=== PATIENT | female | born 1960 | race Caucasian/White ===

== ENCOUNTER 2017-03-12 01:04 | Emergency (ER) | payer OTHER ==
[~2017-03-12] VITALS: Ht 162.6 cm; Wt 66.5 kg
[2017-03-12 01:25] VITALS: Ht 162.6 cm; Wt 66.5 kg
[2017-03-12] MEDS ORDERED: SULF1TAB31 PO (03:15)
[2017-03-12] MEDS ORDERED: CEPH-443 PO (03:15)
[2017-03-12] MEDS ORDERED: DIPHTH/TET/ACEL PERTUSS (ADULT) 0.5 ML VIAL IM* ONE (03:30)
[2017-03-12 03:38] VITALS: BP 121/70; PULSE 96; RESP 14; TEMP 98.6
--- NOTE | 2017-03-12 05:17 | ERD ---
ER Documentation Chief Complaint Chief Complaint right lower leg lac x 1 week, c/o fever/body aches HPI 56-year-old female with a history of hypertension diabetes mellitus type 2 presents with the chief complaints of laceration to the right lower extremity 1 week ago. Denies fever, chills, pain. Patient was brought in by daughter who is worried because she has diabetes. Has not taken any medications for this. Mother does not remember what she cut it on. Patient has no other complaints and describes no other associated manifestations. Nursing notes have been reviewed and are consistent with history given. ROS All systems reviewed and are negative except as per history of present illness. Medications Home Meds Active Scripts Cephalexin* (Keflex*) 500 Mg Capsule, 500 MG PO QID for 5 Days, CAP Prov:GISELL BUSH PA-C 03/12/17 Sulfamethoxazole/Trimethoprim* (Bactrim Ds* Tablet) 1 Each Tablet, 1 TAB PO BID , #14 TAB Prov:GISELL BUSH PA-C 03/12/17 Allergies Allergies: Coded Allergies: No Known Drug Allergies (Verified Allergy, Unknown, 03/12/17) PMhx/Soc History of Surgery: Yes () Hx Alcohol Use: No Hx Substance Use: No Hx Tobacco Use: No Smoking Status: Never smoker Physical Exam Vitals Vital Signs Date Time Temp Pulse Resp B/P Pulse Ox O2 Delivery O2 Flow Rate FiO2 03/12/17 03:38 98.6 96 14 121/70 100 Room Air 03/12/17 01:25 97.2 98 20 133/63 97 Physical Exam Const: Well-appearing 56-year-old female no acute distress. Head: Atraumatic Eyes: Normal Conjunctiva ENT: Normal External Ears, Nose and Mouth. Neck: Full range of motion..~ No meningismus. Resp: Clear to auscultation bilaterally Cardio: Regular rate and rhythm, no murmurs Abd: Soft, non tender, non distended. Normal bowel sounds Skin: No petechiae or rashes Back: No midline or flank tenderness Ext: 7 cm vertical laceration on the right lower extremity below the knee. Mild erythema around the laceration otherwise well-appearing healing. No induration. No discharge noted. No tenderness palpation. No evidence of streaking or other skin changes. No palpable cord. No swelling. Neur: Awake and alert Psych: Normal Mood and Affect Results 24 hrs Current Medications Medications (Trade) Dose Ordered Sig/Hellen Route PRN Reason Start Time Stop Time Status Last Admin Dose Admin Diphtheria/ Tetanus/Acell Pertussis (Adacel) 0.5 ml ONCE ONCE IM* 03/12/17 03:30 03/12/17 03:31 DC 03/12/17 03:18 Procedures/MDM 56-year-old female presenting with a history of diabetes mellitus and hypertension presents 1 week status post laceration to right lower extremity. Tetanus is unknown. Tetanus vaccination was given. Antibiotics will be given. I have no suspicion for systemic infection including bacteremia, spreading cellulitis, lymphangitis or other serious bacterial infection. Most likely diagnosis is superficial localized cellulitis of the right lower extremity. Patient will be treated with Bactrim and Keflex. Outpatient management. I have spoke with the patient regarding their condition and future management. They have verbally responded that they understand their status and treatment plan. The patients vitals are stable, and their current condition is appropriate for discharge. The patient will be given discharge instructions with return precautions. Departure Diagnosis: Primary Impression: Laceration Additional Impression: Cellulitis Site of cellulitis: extremity Site of cellulitis of extremity: lower extremity Laterality: right Qualified Code: L03.115 - Cellulitis of right lower extremity Condition: Stable Patient Instructions: Cellulitis Additional Instructions: Follow up with your PCP within the next 1-3 days for a more thorough evaluation and a possible referral to a specialist. Return the the emergency department immediately if symptoms worsen or change. If you have any questions regarding medications, ask your pharmacist or us before you leave. If any adverse reactions occur while taking your medications, discontinue the treatment and return to the emergency department immediately. Take your medications as directed, and complete the entire course of treatment. GISELL BUSH PA-C Mar 12, 2017 05:17
[2017-03-12] MEDS ORDERED: NAPR-260 PO (20:50)
== END 2017-03-12 03:42 | disposition home or self-care (01) ==
LOC: FTE 01:04
DX: S81.811A Laceration without foreign body, right lower leg, initial encounter (principal); L03.115 Cellulitis of right lower limb; I10 Essential (primary) hypertension; E11.9 Type 2 diabetes mellitus without complications; X58.XXXA Exposure to other specified factors, initial encounter; Y92.9 Unspecified place or not applicable; Z23 Encounter for immunization
CPT/HCPCS: 90471; 90715; Z7502

== ENCOUNTER 2017-03-12 19:24 | Emergency (ER) | payer OTHER ==
[~2017-03-12] VITALS: Ht 157.5 cm; Wt 70.5 kg
[~2017-03-12 19:24] MED LIST: CEPH-443 PO; SULF1TAB31 PO
[2017-03-12 19:34] VITALS: Ht 157.5 cm; Wt 70.5 kg
[2017-03-12] MEDS ORDERED: INSULIN LISPRO 100 UNIT/ML VIAL SC STA (20:47)
[2017-03-12] MEDS ORDERED: KETOROLAC 30 MG INJ IM STA (20:47)
[2017-03-12] MEDS ORDERED: NAPR-260 PO (20:50)
--- NOTE | 2017-03-12 20:54 | ERD ---
ER Documentation Chief Complaint Chief Complaint BIBA RA102,C/O RT ARM PAIN AND RT LEG NUMBNESS R/T FALL ROS All systems reviewed and are negative except as per history of present illness. Medications Home Meds Active Scripts Naproxen* (Naprosyn*) 500 Mg Tablet, 500 MG PO BID Y for PAIN AND/OR INFLAMMATION, #30 TAB Prov:TREVOR GIBBS MD 03/12/17 Cephalexin* (Keflex*) 500 Mg Capsule, 500 MG PO QID for 5 Days, CAP Prov:GISELL BUSH PA-C 03/12/17 Sulfamethoxazole/Trimethoprim* (Bactrim Ds* Tablet) 1 Each Tablet, 1 TAB PO BID , #14 TAB Prov:GISELL BUSH PA-C 03/12/17 Allergies Allergies: Coded Allergies: No Known Drug Allergies (Verified Allergy, Unknown, 03/12/17) PMhx/Soc Depression, anxiety, diabetes mellitus, hypertension, hypercholesterolemia History of Surgery: Yes () Hx Alcohol Use: No Hx Substance Use: No Hx Tobacco Use: No FmHx Family History: No diabetes Physical Exam Vitals Vital Signs Date Time Temp Pulse Resp B/P Pulse Ox O2 Delivery O2 Flow Rate FiO2 03/12/17 19:34 98.2 102 18 176/97 98 Physical Exam GENERAL: Well-developed, well-nourished, well-hydrated, depressed affect HEENT: Moist mucous membranes, pink conjunctiva, no cervical spine tenderness or step-off deformities, no goiter, no jaundice or icterus, extraocular movements intact without pain. No submandibular induration, and no pharyngeal erythema NEURO: Alert and oriented 3, cranial nerves II through XII intact bilaterally, pupils equal round reactive to light, no focal deficits or facial asymmetry, sensation intact distally Strength 5/5 in upper and lower extremities bilaterally CARDIAC: Regular rate and rhythm, no murmurs rubs or gallops LUNGS: Clear bilaterally no wheezing crackles or stridor ABDOMEN: Soft nontender, no guarding, no rigidity, no rebound, no psoas sign no obturator sign. Normoactive bowel sounds SKIN: Warm and dry to touch, superficial healing laceration measuring about 4 cm to the right anterior lower leg without purulent discharge or drainage, no target lesions, and without ulcers EXTREMITIES: No clubbing cyanosis or edema, calves are bilaterally symmetrical, no Homans sign, no popliteal cord sign. Distal pulses equal and bilateral PSYCH: Depressed affect Results 24 hrs Laboratory Tests Test 03/12/17 20:19 Bedside Glucose 387mg/dL Current Medications Medications (Trade) Dose Ordered Sig/Hellen Route PRN Reason Start Time Stop Time Status Last Admin Dose Admin Ketorolac Tromethamine (Toradol) 30 mg ONCE STAT IM 03/12/17 20:47 03/12/17 20:49 DC 03/12/17 21:24 Insulin Human Lispro (Humalog) 6 unit ONCE STAT SC 03/12/17 20:47 03/12/17 20:49 DC 03/12/17 21:12 Procedures/MDM patient was placed on health promotion coordinator rhythm strip revealed a sinus rhythm at about 80 bpm with upright P and T waves. Patient was afebrile I administered Toradol 30 mg intramuscular injection 1. Chest X-ray 1V Interpreted by me: Soft Tissue: No acute abnormalities Bones: No acute abnormalities Mediastinum/Cardiac Silhouette/Lungs: No acute abnormalities CT scan of the brain was performed that was negative for bleed mass or shift. Aside from the right lower leg laceration which is old patient has no signs of injury, she has no bony deformity or tenderness, no large abrasions no obvious significant soft tissue contusions or hematomas. Patient did have complains of right sided body ache after falling today and will be discharged with prescription NSAIDs to help with symptoms. Imaging today was unremarkable and patient can follow-up with her PMD. Patient's blood pressure improved. Differential diagnoses considered, included but not limited to acute coronary syndrome, pulmonary embolism, aortic dissection, abdominal aortic aneurysm, sepsis, stroke, meningitis, encephalitis, pneumonia, appendicitis, cholecystitis , bowel obstruction, pyelonephritis, nephrolithiasis, cystitis, as well as metabolic, hematologic, and electrolyte abnormalities. As well as abscess, cellulitis, fractures, and dislocations. Patient feels much better at this time, and vital signs are normal, symptoms have improved. I did give strict instructions to return to the ED if symptoms continue or worsen, patient will otherwise follow-up with primary care physician. Patient understood instructions and agreed to plan. Disclaimer: Inadvertent spelling and grammatical errors are likely due to EHR/ dictation software use and do not reflect on the overall quality of patient care. Also, please note that the electronic time recorded on this note does not necessarily reflect the actual time of the patient encounter. Departure Diagnosis: Primary Impression: Fall with no significant injury Encounter type: initial encounter Qualified Code: W19.XXXA - Fall with no significant injury, initial encounter Additional Impressions: Depression Depression Type: major depressive disorder Major depression recurrence: single episode Active/Remission status: currently active Major depression episode severity: mild Qualified Code: F32.0 - Mild single current episode of major depressive disorder Scalp contusion Encounter type: initial encounter Qualified Code: S00.03XA - Contusion of scalp, initial encounter Hypertension Hypertension type: essential hypertension Qualified Code: I10 - Essential hypertension Condition: Good Patient Instructions: Scalp Contusion With Wake Up, Fall Prevention TREVOR GIBBS MD Mar 12, 2017 20:54
--- NOTE | 2017-03-12 21:35 | RADRPT ---
PROCEDURE: XR Chest. CLINICAL INDICATION: Pain status post trauma TECHNIQUE: AP Portable chest. COMPARISON: None available FINDINGS: The soft tissues and bones are remarkable for mild thoracic spondylosis. EKG leads is superimposed o jenniffer the chest wall.. No focal infiltrates, masses, or effusions are noted. The mediastinum and hea rt are remarkable for mild vascular calcifications of the thoracic aorta and normal size heart.. No pneumothorax is present. IMPRESSION: 1. No evidence for acute cardiopulmonary disease 2. Mild atherosclerotic vascular disease RPTAT: HDC .Melissa Duncan MD, MD Date Time Electronically viewed and signed by .Melissa Duncan MD, MD on 03/12/2017 21:35 .C/
--- NOTE | 2017-03-12 21:49 | RADRPT ---
PROCEDURE: CT Brain without contrast. CLINICAL INDICATION: Injury. Concern for bleed. TECHNIQUE: A CT of the brain was performed on multidetector high-resolution CT scanner utilizing a xial sections from the skull base through the vertex without contrast. The scan was reviewed in sof t tissue brain and high frequency resolution bone algorithm windows. Images were reviewed on a high -resolution PACS workstation. One or more the following does reduction techniques were utilized: Aut omated exposure control, adjustment of the mA/ or kV according to patient's size, or use of iterativ e reconstruction technique. The exam CTDI = 40.06 mGy and the DLP = 750.4 mGy-cm. COMPARISON: None available. FINDINGS: The ventricles and sulci are age-appropriate. There is no intracranial hemorrhage, mass effect or mi dline shift. No abnormal intra-axial or extra-axial fluid collections are seen. The delgado/white susie er differentiation is preserved. There are mild scattered foci of hypoattenuation in the white matter, which are nonspecific in etiol ogy but likely reflect chronic small vessel ischemic changes. There are mild intracranial vascular calcifications consistent with atherosclerosis. The visualized paranasal sinuses demonstrate mild sc attered mucosal thickening mainly in ethmoid air cells and sphenoid sinuses with a small fluid level s in bilateral sphenoid sinuses. The mastoid air cells are essentially clear. IMPRESSION: 1. No acute intracranial hemorrhage, transcortical infarction or mass effect. 2. Mild intracranial atherosclerosis and chronic small vessel ischemic changes. 3. Mild scattered paranasal sinus disease with small fluid levels in bilateral sphenoid sinuses. RPTAT: HFN .Piter Wilcox MD, MD Date Time Electronically viewed and signed by .Piter Wilcox MD, MD on 03/12/2017 21:49 .N/
[2017-03-12 22:09] VITALS: BP 136/94; PULSE 98; RESP 14; TEMP 98.2
== END 2017-03-12 22:41 | disposition home or self-care (01) ==
LOC: E/R 19:24
DX: F32.0 Major depressive disorder, single episode, mild (principal); S00.03XA Contusion of scalp, initial encounter; I10 Essential (primary) hypertension; E11.9 Type 2 diabetes mellitus without complications; X58.XXXA Exposure to other specified factors, initial encounter; Y92.9 Unspecified place or not applicable
CPT/HCPCS: 70450; 71010; 82962; 96372; J1815; J1885; Z7502